=== PATIENT | male | born 1960 | race Caucasian/White ===

== ENCOUNTER 2022-01-15 07:36 | Emergency (ER) | payer OTHER, SELFPAY ==
[2022-01-15] VITALS (70 sets, daily range): BP systolic 141–183; BP diastolic 75–95; PULSE 73–118; RESP 12–31; TEMP 35.6; O2SAT 92–98
--- NOTE | 2022-01-15 07:40 | XRR_ITS ---
PROCEDURE INFORMATION: Exam: XR Chest Exam date and time: 01/15/2022 8:55 AM Age: 61 years old Clinical indication: Cough and dyspnea; Additional info: Dyspnea/cough TECHNIQUE: Imaging protocol: Radiologic exam of the chest. Views: 1 view. COMPARISON: No relevant prior studies available. FINDINGS: Lungs: Streaky bibasilar atelectasis noted. Pneumonia should be excluded clinically. Pleural spaces: Unremarkable. No pleural effusion. No pneumothorax. Heart/Mediastinum: Unremarkable. No cardiomegaly. Bones/joints: Unremarkable. XR/XR chest 1V portable [id number] IMPRESSION: Streaky bibasilar atelectasis. Pneumonia should be excluded clinically.
--- NOTE | 2022-01-15 07:51 | ECG_ITS ---
[facility] Test Date: 2022-01-15 Pat Name: Ishan Melo Department: Room: Gender: Male Sharepoint Net Developer: : 1960 Requested By: Kevin Keyes Order Number: [id number] Mehrdad MD: Tylor Gonzalez M.D. Measurements Intervals [place] Rate: 80 P: 67 MN: 156 QRS: 67 QRSD: 91 T: 71 QT: 362 QTc: 418 Interpretive Statements SINUS RHYTHM No previous ECG available for comparison Electronically Signed On 01-15-2022 20:35:23 PAYMENT POSTER by Tylor Gonzalez M.D. [id number] f
--- NOTE | 2022-01-15 07:59 | PC.NURSE ---
pt reports vertigo for the past two days, today was worse. reports vomiting, epigastric pain, and sweating today. denies dyspnea or chest pain, denies fevers or complaints. pt sitting in bed, visitor at bedside. respirations even and unlabored, lung sounds clear bilat. bowel sounds present.
[2022-01-15 08:11] LABS: Basophils # 0.1 10^3/uL (0.0-0.1); Basophils % 1.1 %; Eosinophils # 0.1 10^3/uL (0.0-0.8); Eosinophils % 0.8 %; Hematocrit 43.5 % (42.0-52.0); Hemoglobin 14.3 g/dL (11.7-16.6); Lymphocytes # 1.5 10^3/uL (0.8-4.8); Lymphocytes % 13.3 %; Mean Corpuscular HGB Conc 32.9 g/dL (30.0-36.0); Mean Corpuscular Hemoglobin 28.9 pg (28.0-34.0); Mean Corpuscular Volume 88.1 fl (80-94); Mean Platelet Volume 9.8 fL (7.4-10.4); Monocytes # 0.5 10^3/uL (0.2-0.9); Neutrophils # 8.97 10^3/uL (1.8-7.7); Neutrophils % 78.7 %; Nucleated Red Blood Cells % 0 %; Platelet Count 291 10^3/cmm (130-400); Red Blood Count 4.94 10^6/uL (4.1-5.3); Red Cell Distribution Width 13.8 % (12.1-15.1); White Blood Count 11.4 10^3/uL (4.0-10.0)
--- NOTE | 2022-01-15 08:12 | CT_ITS ---
WS: [id number] CT HEAD NONCONTRAST HISTORY: Recent closed head injury TECHNIQUE: Contiguous axial imaging performed through the brain in 2.5 mm imaging. Bone and soft tiss ue windows. Sagittal and coronal reformats reviewed. All CT scans at [facility] use at least one of these dose optimization techniques: automated exposure control; mA and/or kV adjustment per pa tient size (includes targeted exams where dose is matched to clinical indication); or iterative recon struction. DLP: 1065.35 mGy.cm COMPARISON: None available. No acute intracranial hemorrhage, midline shift or mass effect. Mild atrophy and mild small vessel ischemic disease. No prior infarct. Ventricles: Normal size with no hydrocephalus. No inferior displacement of the cerebellar tonsils. Paranasal sinuses: Small amount of fluid in the RIGHT maxillary sinus. Mastoid air cells: Well pneumatized. Calvarium and scalp: Skull is intact with no soft tissue edema or swelling. CT/CT head wo con* [id number] IMPRESSION: 1. No acute intracranial hemorrhage or edema. 2. Mild cerebral atrophy and small vessel ischemic disease. 3. No fracture.
--- NOTE | 2022-01-15 08:33 | ED_ITS ---
HPI - Dizziness General: Chief Complaint: Dizziness Stated Complaint: M/V Labor Breathing, and sheela Time Seen by Provider: 01/15/22 07:39 Source: patient Mode of arrival: ambulatory History of Present Illness: HPI Narrative: 61-year-old male presents emergency room complaining of dizziness. He noticed that the last 2 days is worse when he first gets up after he he has been up for a while it seems to improve. He does notice it worse in the morning. It did intensify to today and to the point that he vomited. He is a diabetic and is hypertensive he has not been taking all of his medicine he stopped to hypertensives and stopped his metformin because of side effects. He has not really had any chest pain no fever sweats or chills no dysuria urgency or frequency. About 2 weeks ago he fell while leaving a restaurant and hit his head he had no loss of consciousness no problems of the dizziness until the last 2 days. He is not on any anticoagulants. No previous history of coronary artery disease or stroke he tells me he had an extensive work-up for coronary artery disease before he moved to this area and it was negative. MD elicited complaint: dizziness and lightheadedness Onset (ago): day(s) (2) Timing: awoke with symptoms Severity: moderate Description: lightheadedness and off-balance Context: change in body position Exacerbating factors: nothing and change in body position Associated symptoms: Reports nausea and vomiting; Denies change in hearing, chest pain, chills, cough, diaphoresis, ear discharge, ear pressure, fevers/chills, headache(s), malaise, nasal congestion, palpitations, rash, short of breath, syncope, tinnitus or weakness Associated neuro symptoms: Deny confusion, difficulty speaking, dysphagia, diplopia, extremity weakness, facial numbness, facial weakness, gait changes, numbness in extremities or visual changes Review of Systems Const: Denies: fever(s), chills, fatigue, malaise or diaphoresis ENMT: Denies: throat pain, ear discharge, change in hearing, tinnitus or nasal congestion Card: Denies: chest pain, palpitations or syncope Resp: Denies: dyspnea, productive cough or non-productive cough GI: Reports: abdominal pain, nausea and vomiting; Denies: hematemesis, dysphagia or hematochezia : Denies: flank pain, dysuria, urinary frequency or urinary urgency Musc: Denies: neck pain or back pain Skin/Breast: Denies: rash or pruritus Neuro: Denies: headache(s), numbness in extremities or confusion PFSH ED PFSH: Medical History (Updated 01/15/22 @ 12:21 by Kevin Hurley DO) Hypertension Type 2 diabetes mellitus Social History (Updated 01/15/22 @ 08:42 by Kevin Hurley DO) Smoking and tobacco status: never smoked Alcohol intake: never Physical Exam Const: GENERAL APPEARANCE: cooperative and comfortable ORIENTATION/CONSCIOUSNESS: Yes awake, Yes oriented to person, Yes oriented to place and Yes oriented to time HENMT: COMMON NORMALS: normocephalic, atraumatic, hearing grossly normal bilaterally, external ears normal, EAC's normal, TM's normal bilaterally and Normal nasal mucous membranes and turbinates present HEAD & SCALP: normo cephalic and atraumatic NOSE: Normal nasal mucous membranes and turbinates present EXTERNAL EAR: Yes external ears normal EXTERNAL AUDITORY CANAL: EAC's normal TYMPANIC MEMBRANE: TM's normal bilaterally Eye: COMMON NORMALS: Equal, round and reactive pupils present, EOMs intact bilaterally, conjunctivae normal and no scleral icterus CONJUNCTIVA: Yes conjunctivae normal PUPIL: Yes Equal, round and reactive pupils present Resp: COMMON NORMALS: normal respiratory effort, No retractions, No use of accessory muscles and clear to auscultation bilaterally AUSCULTATION: clear to auscultation bilaterally Cardio: COMMON NORMALS: regular rate, regular rhythm and No murmurs present (Cardio) RATE: regular rate RHYTHM: regular rhythm GI: COMMON NORMALS: Soft to palpation and No hepatosplenomegaly present AUSCULTATION: Yes normoactive bowel sounds PALPATION: Yes Soft to palpation, No Tenderness to palpation present (GI), No Guarding due to palpation present (GI) and Yes No hepatosplenomegaly present Extremity: COMMON NORMALS: normal to inspection, capillary refill normal, no clubbing, cyanosis or edema, no calf tenderness and no pedal edema Neuro: SENSORIUM/ORIENTATION: Yes oriented to person, Yes oriented to place and Yes oriented to time Skin: COMMON NORMALS: no rashes or lesions noted GENERAL SKIN EXAM: no rashes or lesions noted Course Vital Signs: Vital signs: Vital Signs Temperature 96.1 F L 01/15/22 07:45 Pulse Rate 104 H 01/15/22 12:35 Respiratory Rate 21 H 01/15/22 12:35 Blood Pressure 146/79 01/15/22 12:35 Pulse Oximetry 94 01/15/22 12:35 MDM - Dizziness Medical Decision Making Stented stay in the emergency room getting his blood sugars down. His symptoms improved?we controlled his blood sugar and his blood pressure his blood sugar went from 430 down to 280 after 30 units of regular insulin and a liter of normal saline. He was previously on metformin 1000 mg twice daily of immediate release had a lot of GI side effects and he quit that. Discussed with him that I think his symptoms are primarily caused by his blood pressure control and his blood sugar checked at the [facility] program will discharge a little over $12 for a month of the Janumet Exar, will also start the patient on Toprol-XL and lisinopril. Very concerned as patient is likely going to end up on some form of exogenous insulin discussed this with him he would like to still manage pills or some other form of blood sugar sugar control. Through case management we are able to get him a early appointment with Dr. Marr later this week. Patient vies to return to the emergency room he has any further problems. Advised him that the medications we started today the Janumet lisinopril and Toprol are initial doses and very likely will need to be adjusted going forward. Medical Records I reviewed the patient's medical records. Lab Data I reviewed the patient's lab results. 01/15/22 08:04 01/15/22 08:04 Radiology Impressions Chest X-Ray 01/15/22 07:40 IMPRESSION: Streaky bibasilar atelectasis. Pneumonia should be excluded clinically. Head CT 01/15/22 08:12 IMPRESSION: 1. No acute intracranial hemorrhage or edema. 2. Mild cerebral atrophy and small vessel ischemic disease. 3. No fracture. Laboratory Results WBC 11.4 10^3/uL (4.0-10.0) H 01/15/22 08:04 RBC 4.94 10^6/uL (4.1-5.3) 01/15/22 08:04 Hgb 14.3 g/dL (11.7-16.6) 01/15/22 08:04 Hct 43.5 % (42.0-52.0) 01/15/22 08:04 MCV 88.1 fl (80-94) 01/15/22 08:04 MCH 28.9 pg (28.0-34.0) 01/15/22 08:04 MCHC 32.9 g/dL (30.0-36.0) 01/15/22 08:04 RDW 13.8 % (12.1-15.1) 01/15/22 08:04 Plt Count 291 10^3/cmm (130-400) 01/15/22 08:04 MPV 9.8 fL (7.4-10.4) 01/15/22 08:04 Neut % (Auto) 78.7 % 01/15/22 08:04 Lymph % (Auto) 13.3 % 01/15/22 08:04 [place] % (Auto) 4.0 % 01/15/22 08:04 Eos % (Auto) 0.8 % 01/15/22 08:04 Baso % (Auto) 1.1 % 01/15/22 08:04 Neut # (Auto) 8.97 10^3/uL (1.8-7.7) H 01/15/22 08:04 Lymph # (Auto) 1.5 10^3/uL (0.8-4.8) 01/15/22 08:04 [place] # (Auto) 0.5 10^3/uL (0.2-0.9) 01/15/22 08:04 Eos # (Auto) 0.1 10^3/uL (0.0-0.8) 01/15/22 08:04 Baso # (Auto) 0.1 10^3/uL (0.0-0.1) 01/15/22 08:04 Nucleated RBC % (auto) 0 % 01/15/22 08:04 Nucleated RBCs # 0.0 /100WBC 01/15/22 08:04 Sodium 132 mmol/L (136-145) L 01/15/22 08:04 Potassium 4.1 mmol/L (3.5-5.1) 01/15/22 08:04 Chloride 98 mmol/L (98-107) 01/15/22 08:04 Carbon Dioxide 21 mmol/L (22-29) L 01/15/22 08:04 Anion Gap 17.1 (5-19) 01/15/22 08:04 BUN 16 mg/dL (8-23) 01/15/22 08:04 Creatinine 0.8 mg/dL (0.7-1.2) 01/15/22 08:04 GFR Calculation 98.0 mL/min (90-130) 01/15/22 08:04 Glucose 464 mg/dL (65-115) H 01/15/22 08:04 POC Glucose 288 mg/dL (70-110) H 01/15/22 12:57 Calculated Osmolality 295 mOsm/kg (285-295) 01/15/22 08:04 Calcium 9.2 mg/dL (8.5-10.5) 01/15/22 08:04 Total Bilirubin 0.2 mg/dL (0.15-1.2) 01/15/22 08:04 AST 10 U/L (0-40) 01/15/22 08:04 ALT 18 U/L (0-41) 01/15/22 08:04 Alkaline Phosphatase 102 U/L (40-130) 01/15/22 08:04 Troponin T Baseline 8 ng/L (0-15) 01/15/22 08:04 Troponin T 120 Minute 9.24 ng/L (0-15) 01/15/22 10:06 Delta Troponin T 1.24 ABS# (0-10) 01/15/22 10:06 NT-Pro-B Natriuret Pep 16 pg/mL (0-125) 01/15/22 08:04 Total Protein 7.6 g/dL (6.6-8.7) 01/15/22 08:04 Albumin 3.8 g/dL (3.5-5.2) 01/15/22 08:04 Globulin 3.8 g/dL (1.3-4.6) 01/15/22 08:04 Serum Ketones Negative (Negative) 01/15/22 08:04 Influenza Type A Ag negative (Negative) 01/15/22 08:16 Influenza Type B Ag negative (Negative) 01/15/22 08:16 Discharge Plan Discharge Patient Disposition: Home Clinical Impression: Hypertension, Type 2 diabetes mellitus Condition: Stable Prescriptions: New Toprol XL 25 mg tablet extended release 24 hr 25 mg PO DAILY Qty: 30 0RF lisinopril 10 mg tablet 10 mg PO BID Qty: 60 0RF Janumet XR 50-1,000 mg tablet, ER multiphase 24 hr 1 tab PO DAILY Qty: 30 0RF No Action Vitamin C 1,000 mg Tablet 2,000 mg PO BID zinc acetate 50 mg (zinc) Capsule 50 mg PO DAILY ibuprofen 200 mg Tablet 800 mg PO Q8H PRN (Reason: Pain) [place] 1 tsp PO PRN Discharge Orders: Discharge ED (Routine); Ordered 01/15/22 Ordered By: Kevin Hurley Discharge Diet: Diabetic Discharge Activity: Increase activity as tolerated Patient Instructions: Meal Planning with Diabetes Exchanges (DC), Opioid Safety, Pain Management Activity Restrictions/Additional Instructions: Follow-up with Dr. Marr as scheduled in his office on 01/18/2022. Coding Level of Care Code ED Franchise Sales Manager for Rebeca Fwd Exam Comprehensive
[2022-01-15 08:39] LABS: Ketone (Acetest) Serum Negative (Negative)
[2022-01-15 08:41] LABS: Influenza A by IFA negative (Negative); Influenza B by IFA negative (Negative)
[2022-01-15 08:43] LABS: Troponin(5th) Baseline 8 ng/L (0-15)
[2022-01-15 08:51] LABS: Alanine Aminotransferase 18 U/L (0-41); Albumin Level 3.8 g/dL (3.5-5.2); Alkaline Phosphatase 102 U/L (40-130); Anion Gap 17.1 (5-19); Aspartate Amino Transferase 10 U/L (0-40); Blood Urea Nitrogen 16 mg/dL (8-23); Calcium 9.2 mg/dL (8.5-10.5); Carbon Dioxide 21 mmol/L (22-29); Chloride 98 mmol/L (98-107); Globulin 3.8 g/dL (1.3-4.6); Glucose 464 mg/dL (65-115); NT Pro B Type Natriuretic Pept 16 pg/mL (0-125); Osmolality Calculated 295 mOsm/kg (285-295); Potassium 4.1 mmol/L (3.5-5.1); Sodium 132 mmol/L (136-145); Total Bilirubin 0.2 mg/dL (0.15-1.2); Total Protein 7.6 g/dL (6.6-8.7)
[2022-01-15] MEDS: amlodipine 5 mg Tablet PO (08:53)
[2022-01-15] MEDS: metoprolol tartrate 1 mg/1 mL SDV 5 mL 2.5 MG IVP (08:56)
[2022-01-15] MEDS: meclizine 25 mg tablet PO (09:05)
[2022-01-15] MEDS: sodium chloride 0.9% 1,000 ML 999 ML IV (09:24)
[2022-01-15] MEDS: insulin regular-human 100 units/1 mL 10 UNIT IVP ×3 (09:25→11:49)
--- NOTE | 2022-01-15 09:35 | ECG_ITS ---
[facility] Test Date: 2022-01-15 Pat Name: Ishan Melo Department: Room: Gender: Male Penciller: : 1960 Requested By: Kevin Keyes Order Number: [id number] Mehrdad MD: Tylor Gonzalez M.D. Measurements Intervals [place] Rate: 79 P: 72 ID: [id number] QRS: 69 QRSD: 94 T: 70 QT: 370 QTc: 426 Interpretive Statements SINUS RHYTHM No previous ECG available for comparison Electronically Signed On 01-15-2022 20:45:07 RESEARCH PROFESSIONAL by Tylor Gonzalez M.D. [id number]
[2022-01-15] MEDS: hyDRALAzine 20 mg/mL INJ 1 mL IVP (10:08)
[2022-01-15 10:14] LABS: Glucose Point of Care 373 mg/dL (70-110)
[2022-01-15 10:30] LABS: Troponin 5 2HR 9.24 ng/L (0-15)
[2022-01-15 10:36] LABS: Troponin 5 2HR Delta 1.24 ABS# (0-10)
--- NOTE | 2022-01-15 11:06 | PC.PHAR ---
pt states he hasnt been taking his rx medications for 2 months-pt states was taking lisinopril/hctz 20-25mg daily-glipizide 5mg bid-metformin 1000mg bid-actos 45mg daily-zetia 10mg daily-androgel 1.62% pump prn -cialis 20mg prn and fluocinonide 0.5% deborah prn-
[2022-01-15 11:29] LABS: Glucose Point of Care 307 mg/dL (70-110)
[2022-01-15 12:23] LABS: Glucose Point of Care 303 mg/dL (70-110)
--- NOTE | 2022-01-15 12:29 | DCPLANNER ---
Addendum entered by Angie Murguia 02/14/22 10:11: Patient had a follow up appointment scheduled to establish care with Dr. Giraldo - patient did attend appointment. Original Note: executive sales manager was asked to speak with patient about getting established with a primary care physician. Patient stated that he would like for cyanide case hardener to get patient established with a provider. executive sales manager called [facility], spoke with Claudia, gave clinic patients information. A follow up appointment was scheduled for Tuesday, January 18, 2022 at 10:[address] Giraldo. executive sales manager informed patient and ER physician of the scheduled appointment.
[2022-01-15 13:01] LABS: Glucose Point of Care 288 mg/dL (70-110)
== END 2022-01-15 13:44 | disposition home or self-care (01) ==
PROVIDERS: Emergency Provider Family Medicine
DX: I10 Essential (primary) hypertension (principal); E11.9 Type 2 diabetes mellitus without complications
CPT/HCPCS: 36416; 70450; 71045; 80053; 82009; 82962; 83880; 84484; 85025; 87804; 93005; 96361; 96374; 96375; 96376; 99285; J0360; J1815; J3490; J7030; J8597

== ENCOUNTER → 2022-01-18 11:06 | Outpatient (BNVA) | payer OTHER, SELFPAY | PROVIDERS: Visit Provider Family Medicine | DX: E78.00 Pure hypercholesterolemia, unspecified (principal); E11.9 Type 2 diabetes mellitus without complications; I10 Essential (primary) hypertension | CPT/HCPCS: 80053; 80061; 83036 ==

== ENCOUNTER → 2022-05-16 08:20 | Outpatient (BNVA) | payer OTHER, SELFPAY | PROVIDERS: PCP Family Medicine; Visit Provider Family Medicine | DX: R79.89 Other specified abnormal findings of blood chemistry (principal); E78.00 Pure hypercholesterolemia, unspecified; E11.9 Type 2 diabetes mellitus without complications | CPT/HCPCS: 80053; 80061; 83036; 84403 ==

== ENCOUNTER 2022-09-23 14:00 | Outpatient (CLI) | payer OTHER, SELFPAY | END 2022-09-23 14:01 | disposition home or self-care (01) | LOC: SLEEP 09-24 13:07 | PROVIDERS: PCP Family Medicine; Visit Provider Family Medicine | DX: G47.33 Obstructive sleep apnea (adult) (pediatric) (principal); Z99.89 Dependence on other enabling machines and devices | CPT/HCPCS: G0399 ==

== ENCOUNTER 2023-07-14 10:39 | Emergency (ER) | payer OTHER, SELFPAY ==
[2023-07-14 10:44] VITALS: BP 150/81; PULSE 99; RESP 16; TEMP 36.4; O2SAT 96
[2023-07-14 13:13] LABS: Basophils # 0.1 10^3/uL (0.0-0.1); Eosinophils # 0.2 10^3/uL (0.0-0.8); Eosinophils % 1.7 %; Hematocrit 48.7 % (37-53); Lymphocytes # 2.2 10^3/uL (0.8-4.8); Lymphocytes % 24.3 %; Mean Corpuscular HGB Conc 32.9 g/dL (30-55); Mean Corpuscular Hemoglobin 29.4 pg (27-33); Mean Corpuscular Volume 89.4 fl (82-101); Mean Platelet Volume 9.4 fL (7.4-10.4); Monocytes # 0.6 10^3/uL (0.2-0.9); Monocytes % 7.1 %; Neutrophils # 5.82 10^3/uL (1.8-7.7); Neutrophils % 64.1 %; Nucleated Red Blood Cells % 0 %; Platelet Count 235 10^3/cmm (157-399); Red Blood Count 5.45 10^6/uL (3.85-5.65); Red Cell Distribution Width 14.2 % (12.1-15.1); White Blood Count 9.06 10^3/uL (3.29-11.43)
[2023-07-14 13:18] VITALS: BP 146/87; PULSE 98; RESP 17; O2SAT 96
--- NOTE | 2023-07-14 13:29 | CT_ITS ---
WS: [id number] CT ABDOMEN AND PELVIS NONCONTRAST HISTORY: hematuria x4 days TECHNIQUE: Imaging performed through the abdomen and pelvis. Coronal and sagittal reformats are submi tted. All CT scans at [facility] use at least one of these dose optimization techniques: auto mated exposure control; mA and/or kV adjustment per patient size (includes targeted exams where dose is matched to clinical indication); or iterative reconstruction. DLP: 985.83 mGy.cm COMPARISON: None available. Lower thorax: Mild dependent changes. No pneumonia. Heart size is normal. Liver: Normal size liver. No mass or bile duct dilatation. Gallbladder: Normal gallbladder. No pericholecystic fluid or cholelithiasis. No gallbladder wall thic kening. Pancreas: Normal size and attenuation. Normal pancreatic duct. No pancreatitis or mass. Spleen: Normal. Adrenal glands: Fat-containing 2.3 x 2.4 cm mass associated with the RIGHT adrenal gland. Normal LEFT adrenal gland. Right kidney: Abnormal shape and configuration of the RIGHT kidney. There are no prior studies but th ere are lobulated masses associated with the RIGHT kidney. The largest measures 6.2 x 5.6 cm is proba brando a cyst. These cannot be further evaluated accurately on this noncontrast study. There is a large central calcification in the renal pelvis measuring 3.3 x 1.6 cm. Inflammatory changes within the roxanna al pelvis and proximal ureter. Distal ureter is normal size. Mild dilatation of the central RIGHT roxanna al pelvis. Left kidney: Abnormal configuration of the LEFT kidney. Exophytic low-attenuation masses cannot be fu rther characterized. There is no hydronephrosis. There are a few nonobstructing calcifications. Aorta: Mild atherosclerosis abdominal aorta with no aneurysm. There is a small amount of free fluid extending along the RIGHT paracolic gutter and RIGHT abdomen. S mall amount of fluid over the RIGHT psoas muscle. GI tract: Marked fluid distention of the stomach. No small bowel obstruction. There is extensive sign ificant diverticular disease throughout the entire colon. No obstructive pattern. Normal appendix. Abdominal wall: Negative. No hernia. Pelvis: Prostate gland enlargement with mild encroachment upon the bladder. No free fluid. Osseous structures: Increase in the lumbar lordosis. CT/CT kidney stone [id number] IMPRESSION: 1. Acute inflammatory process associated with the RIGHT kidney. There is a lar ge central renal calcification with adjacent soft tissue infiltration consisten t with an infection and partial renal obstruction. Majority of the changes are related to an inflammatory process. 2. Fluid along the RIGHT paracolic gutter over the RIGHT psoas muscle. Probabl y an inflammatory reaction related to the renal process. 3. Severe diffuse diverticulosis. No evidence for acute diverticulitis. 4. Abnormal configuration of each kidney. There are lobulated masses which may be renal cysts. These cannot be further evaluated on this noncontrast evaluati on.
[2023-07-14 13:30] VITALS: BP 130/78
[2023-07-14 13:32] LABS: Anion Gap 17.3 (5-19); Blood Urea Nitrogen 16 mg/dL (8-23); Calcium 9.3 mg/dL (8.5-10.5); Carbon Dioxide 22 mmol/L (22-29); Chloride 101 mmol/L (98-107); Creatinine Clr Calc Pharmacy 124.6239; Glomerular Filtration Rate 113.9 mL/min (90-130); Glucose 181 mg/dL (65-115); Osmolality Calculated 288 mOsm/kg (285-295); Potassium 4.3 mmol/L (3.5-5.1); Sodium 136 mmol/L (136-145)
--- NOTE | 2023-07-14 13:43 | ED_ITS ---
Documented by User: ALEJA Marc 07/14/23 15:37 HPI - Male Genitourinary 2 General: Chief complaint: Urogenital-Male Stated complaint: blood in urine Time Seen by Provider: 07/14/23 12:59 Source: patient Mode of arrival: ambulatory Limitations: no limitations History of Present Illness: Patient is a 62-year-old male presenting to the emergency department as instructed by [facility] due to hematuria for the past 4 days. Patient notes that the blood in his urine has been constant, though has not been associated with any dysuria, flank pain, nausea, vomiting, or other concerning symptoms. He does note that he has never had this before, though has a history of 2 prior kidney stones that did not require medical attention. He is not having any fevers at this time. Medical history positive for diabetes and hypertension. The urinalysis obtained at the [facility] was reportedly too bloody to run any tests on, reason for being sent to the ED. Currently, patient has no complaints. No penile trauma reported. MD Complaint: other (Hematuria) Onset (ago): day(s) Duration: constant Associated symptoms: Reports no associated symptoms and hematuria; Deny dysuria, nausea or vomiting Review of Systems 2 General: Reports: 10 or more systems reviewed and unremarkable except in HPI and below Const: Denies: fever(s), chills, change in appetite, change in weight or diaphoresis ENMT: Denies: throat pain or hoarseness Card: Denies: chest pain, palpitations or lightheadedness Resp: Denies: dyspnea, productive cough or wheezing GI: Denies: abdominal pain, nausea, vomiting, diarrhea, constipation, bloating, change in stool character or hematochezia : Reports: hematuria; Denies: flank pain, difficulty urinating, dysuria, urinary frequency or urinary urgency Musc: Denies: neck pain or back pain Skin/Breast: Denies: rash or new lesions Neuro: Denies: headache(s) or dizziness PFSH ED 2 PFSH: Medical History Low testosterone Erectile dysfunction Hypercholesteremia Tachycardia Obstructive sleep apnea on CPAP Type 2 diabetes mellitus Hypertension Surgical History History of hernia surgery 2018 Family History Other Adopted Social History Smoking and tobacco/nicotine status: never used tobacco/nicotine Alcohol intake: current Alcohol intake frequency: holidays/special occasions only Substance/Drug Use: never Adopted: Yes Lives independently: Yes Household members: spouse Marital status: Number of children: 4 Current occupational status: retired Current gender identity: Male Physical Exam 2 Const: COMMON NORMALS: no acute distress, patient oriented x3, no limitations, healthy appearing, alert and well nourished GENERAL APPEARANCE: cooperative and comfortable NUTRITIONAL APPEARANCE: obese ORIENTATION/CONSCIOUSNESS: Y es awake HENMT: COMMON NORMALS: normocephalic, atraumatic, hearing grossly normal bilaterally, external ears normal, Normal external nose present, Normal nasal mucous membranes and turbinates present and moist oral mucous membranes HEAD & SCALP: normocephalic and atraumatic NOSE: Normal external nose present and Normal nasal mucous membranes and turbinates present EXTERNAL EAR: Yes external ears normal Eye: COMMON NORMALS: Equal, round and reactive pupils present, EOMs intact bilaterally, conjunctivae normal and normal visual christian by confrontation C ONJUNCTIVA: Yes conjunctivae normal PUPIL: Yes Equal, round and reactive pupils present Neck/C-Spine: COMMON NORMALS: full ROM, supple, no meningeal signs and no JVD Resp: COMMON NORMALS: normal respiratory effort, No retractions, No use of accessory muscles and clear to auscultation bilaterally AUSCULTATION: clear to auscultation bilaterally, no crackles, no rales, no rhonchi and no wheezes Cardio: COMMON NORMALS: no JVD, regular rate, regular rhythm, S1 normal heart sound present, S2 normal heart sound present, No gallops present (Cardio), No clicks present (Cardio), No murmurs present (Cardio), No rub (Cardio) and Peripheral pulses 2+ throughout RATE: regular rate RHYTHM: regular rhythm HEART SOUNDS: S1 normal heart sound present and S2 normal heart sound present PERIPHERAL PULSES: Peripheral pulses 2+ throughout GI: COMMON NORMALS: Normal to inspection, nondistended, normoactive bowel sounds present, Soft to palpation, non-tender, No hepatosplenomegaly present and no masses INSPECTION: Yes central obesity AUSCULTATION: Yes normoactive bowel sounds PALPATION: Yes Soft to palpation, No Guarding due to palpation present (GI), No Rigid due to palpation and Yes No hepatosplenomegaly present RECTAL EXAM: Yes deferred : COMMON NORMALS: Yes no CVA tenderness BLADDER/KIDNEY EXAM: Yes no CVA tenderness Back/Pelvis: COMMON NORMALS: no CVA tenderness Extremity: COMMON NORMALS: normal to inspection and full ROM Neuro: COMMON NORMALS: patient oriented x3, moves all extremities, no focal motor deficits and no sensory deficits noted SENSORIUM/ORIENTATION: Yes alert MENINGEAL SIGNS: Yes no meningeal signs Psych: COMMON NORMALS: mental status grossly normal, cooperative and speech normal SPEECH: Yes normal speech Skin: COMMON NORMALS: no rashes or lesions noted GENERAL SKIN EXAM: no rashes or lesions noted Course 2 Vital Signs: Vital signs: Vital Signs Temperature 97.6 F 07/14/23 10:44 Pulse Rate 92 07/14/23 15:38 Respiratory Rate 16 07/14/23 14:00 Blood Pressure 142/101 07/14/23 15:38 Pulse Oximetry 95 07/14/23 15:38 Oxygen Delivery Me thod Room Air 07/14/23 14:30 [facility] - Male Medical Decision Making Patient presents for days of hematuria. No complaints noted in addition to the blood in urine, does note a history of kidney stones though did not seek evaluation. Was sent from [place] due to the amount of blood in his urine. Urinalysis did reveal large amounts of blood as well as too numerous to count of red blood cells, some mild signs of infection. His blood work was unremarkable. Abdomen pelvis CT showed an acute inflammatory process in the right kidney with large central renal calcification. There was some associated inflammatory changes noted as well. I spoke with urologist at [facility], Dr. Tesfaye, who states patient can be treated outpatient and follow-up in his office with any further concerns. He will be started on ciprofloxacin for treatment of any infection and given Naprosyn to help with pain. He does note that he has not had any pain since noticing the blood. Reasons to return are thoroughly discussed, and patient will follow-up with the [place]. All other questions and concerns addressed at this time. Lab Data I reviewed the patient's lab results. 07/14/23 12:42 07/14/23 12:42 Radiology Impressions Abdomen/Pelvis CT 07/14/23 13:29 IMPRESSION: 1. Acute inflammatory process associated with the RIGHT kidney. There is a large central renal calcification with adjacent soft tissue infiltration consistent with an infection and partial renal obstruction. Majority of the changes are related to an inflammatory process. 2. Fluid along the RIGHT paracolic gutter over the RIGHT psoas muscle. Probably an inflammatory reaction related to the renal process. 3. Severe diffuse diverticulosis. No evidence for acute diverticulitis. 4. Abnormal configuration of each kidney. There are lobulated masses which may be renal cysts. These cannot be further evaluated on this noncontrast evaluation. Laboratory Results WBC 9.06 10^3/uL (3.29-11.43) 07/14/23 12:42 RBC 5.45 10^6/uL (3.85-5.65) 07/14/23 12:42 Hgb 16.00 g/dL (11.27-16.99) 07/14/23 12:42 Hct 48.7 % (37-53) 07/14/23 12:42 MCV 89.4 fl (82-101) 07/14/23 12:42 MCH 29.4 pg (27-33) 07/14/23 12:42 MCHC 32.9 g/dL (30-55) 07/14/23 12:42 RDW 14.2 % (12.1-15.1) 07/14/23 12:42 Plt Count 235 10^3/cmm (157-399) 07/14/23 12:42 MPV 9.4 fL (7.4-10.4) 07/14/23 12:42 Neut % (Auto) 64.1 % 07/14/23 12:42 Lymph % (Auto) 24.3 % 07/14/23 12:42 [place] % (Auto) 7.1 % 07/14/23 12:42 Eos % (Auto) 1.7 % 07/14/23 12:42 Baso % (Auto) 1.0 % 07/14/23 12:42 Neut # (Auto) 5.82 10^3/uL (1.8-7.7) 07/14/23 12:42 Lymph # (Auto) 2.2 10^3/uL (0.8-4.8) 07/14/23 12:42 [place] # (Auto) 0.6 10^3/uL (0.2-0.9) 07/14/23 12:42 Eos # (Auto) 0.2 10^3/uL (0.0-0.8) 07/14/23 12:42 Baso # (Auto) 0.1 10^3/uL (0.0-0.1) 07/14/23 12:42 Nucleated RBC % (auto) 0 % 07/14/23 12:42 Nucleated RBCs # 0.0 /100WBC 07/14/23 12:42 Sodium 136 mmol/L (136-145) 07/14/23 12:42 Potassium 4.3 mmol/L (3.5-5.1) 07/14/23 12:42 Chloride 101 mmol/L (98-107) 07/14/23 12:42 Carbon Dioxide 22 mmol/L (22-29) 07/14/23 12:42 Anion Gap 17.3 (5-19) 07/14/23 12:42 BUN 16 mg/dL (8-23) 07/14/23 12:42 Creatinine 0.7 mg/dL (0.7-1.2) 07/14/23 12:42 GFR Calculation 113.9 mL/min (90-130) 07/14/23 12:42 Glucose 181 mg/dL (65-115) H 07/14/23 12:42 Calculated Osmolality 288 mOsm/kg (285-295) 07/14/23 12:42 Calcium 9.3 mg/dL (8.5-10.5) 07/14/23 12:42 Urine Color Red (Yellow) A 07/14/23 13:14 Urine Appearance Bloody (CLEAR) A 07/14/23 13:14 Urine pH 5 (5-7) 07/14/23 13:14 Ur Specific [place] 1.020 (1.005-1.030) 07/14/23 13:14 Urine Protein 3+ (Negative) H 07/14/23 13:14 Urine Glucose (UA) 4+ (Normal) H 07/14/23 13:14 Urine Ketones Negative (Negative) 07/14/23 13:14 Urine Blood 3+ (Negative) H 07/14/23 13:14 Urine Nitrate Negative (Negative) 07/14/23 13:14 Urine Bilirubin Neg (Negative) 07/14/23 13:14 Urine Urobilinogen Neg mg/dL (Negative) 07/14/23 13:14 Ur Leukocyte Esterase Trace (Negative) H 07/14/23 13:14 Urine RBC Too numerous to cnt /hpf (0-2) H 07/14/23 13:14 Urine WBC 80-100 /hpf (0-5) H 07/14/23 13:14 Ur Squamous Epith Cells 0-4 /hpf (0-5) H 07/14/23 13:14 Amorphous Sediment Not Reportable 07/14/23 13:14 Urine Bacteria 1+ /hpf (NONE) H 07/14/23 13:14 Urine Mucus Trace /hpf 07/14/23 13:14 All radiology interpretation(s) finalized by discharge Discharge Plan Discharge Patient Disposition: Home Clinical Impression: Renal calculus Hematuria Qualifiers: Hematuria type: gross Qualified Code(s): R31.0 - Gross hematuria Condition: Stable Prescriptions: New Cipro 500 mg tablet 500 mg PO BID 10 Days Qty: 20 0RF Naprosyn 500 mg tablet 500 mg PO BID PRN (Reason: pain) Qty: 30 0RF No Action (DME) CPAP 16 setting See Rx Instructions .ROUTE .MEDSUPPLY Qty: 1 0RF Rx Instructions: As directed (DME) CPAP mask, tubing, supplies See Rx Instructions .ROUTE .MEDSUPPLY Qty: 1 1RF Rx Instructions: As directed (DME) lancets 33 gauge misc See Rx Instructions .Route Qty: 100 3RF Rx Instructions: As directed ketoconazole 2 % shampoo 1 applic topical Q14D Qty: 120 2RF (DME) OneTouch Verio test strips Strip See Rx Instructions .Route Qty: 100 4RF Rx Instructions: As directed ezetimibe 10 mg tablet 10 mg PO DAILY Qty: 60 0RF Rx Instructions: 340b ascorbic acid (vitamin C) [Vitamin C] 1,000 mg Tablet 2,000 mg PO BID zinc acetate 50 mg (zinc) Capsule 50 mg PO DAILY metoprolol succinate 50 mg Tablet Extended Release 24 Hr 25 mg PO DAILY lisinopril 20 mg Tablet 10 mg PO DAILY sildenafil 100 mg Tablet See Rx Instructions .ROUTE .COMPLEX Rx Instructions: Take 50mg by mouth 1 hour prior to sexual activity. Limit 6 does per 30 days. metformin 500 mg Tablet Extended Release 24 Hr 1,000 mg PO DAILY Jardiance 25 mg Tablet 25 mg PO DAILY fluocinonide 0.05 % cream 1 applic topical BID alogliptin 12.5 mg Tablet 12.5 mg PO DAILY Discharge Orders: Discharge ED (Routine); Ordered 07/14/23 Ordered By: Car Perez Referrals: Glenn Thompson DO [Primary Care Provider] - Discharge Diet: As Directed Discharge Activity: Increase activity as tolerated Patient Instructions: Kidney Stones (ED) Activity Restrictions/Additional Instructions: Take antibiotics as prescribed. Pain medications as directed. Follow-up with urology as discussed, [facility] Return if you develop any new or worsening of symptoms. Coding Level of Care Code ED Screw Machine Operator Swiss Type for Chg Fwd Documented by User: Kevin Hurley DO 07/14/23 18:06 HPI - Male Genitourinary 2 General: Chief complaint: Urogenital-Male Stated complaint: blood in urine Time Seen by Provider: 07/14/23 12:59 PFSH ED 2 PFSH: Medical History Low testosterone Erectile dysfunction Hypercholesteremia Tachycardia Obstructive sleep apnea on CPAP Type 2 diabetes mellitus Hypertension Surgical History History of hernia surgery 2018 Family History Other Adopted Social History Smoking and tobacco/nicotine status: never used tobacco/nicotine Alcohol intake: current Alcohol intake frequency: holidays/special occasions only Substance/Drug Use: never Adopted: Yes Lives independently: Yes Household members: spouse Marital status: Number of children: 4 Current occupational status: retired Current gender identity: Male Course 2 Vital Signs: Vital signs: Vital Signs Temperature 97.6 F 07/14/23 10:44 Pulse Rate 92 07/14/23 15:38 Respiratory Rate 16 07/14/23 14:00 Blood Pressure 142/101 07/14/23 15:38 Pulse Oximetry 95 07/14/23 15:38 Oxygen Delivery Me thod Room Air 07/14/23 14:30 MDM - Male Medical Decision Making Patient presents for days of hematuria. No complaints noted in addition to the blood in urine, does note a history of kidney stones though did not seek evaluation. Was sent [place] due to the amount of blood in his urine. Urinalysis did reveal large amounts of blood as well as too numerous to count of red blood cells, some mild signs of infection. His blood work was unremarkable. Abdomen pelvis CT showed an acute inflammatory process in the right kidney with large central renal calcification. There was some associated inflammatory changes noted as well. I spoke with urologist at [facility], Dr. Tesfaye, who states patient can be treated outpatient and follow-up in his office with any further concerns. He will be started on ciprofloxacin for treatment of any infection and given Naprosyn to help with pain. He does note that he has not had any pain since noticing the blood. Reasons to return are thoroughly discussed, and patient will follow-up with the [place]. All other questions and concerns addressed at this time. Chart reviewed Lab Data 07/14/23 12:42 07/14/23 12:42 Radiology Impressions Abdomen/Pelvis CT 07/14/23 13:29 IMPRESSION: 1. Acute inflammatory process associated with the RIGHT kidney. There is a large central renal calcification with adjacent soft tissue infiltration consistent with an infection and partial renal obstruction. Majority of the changes are related to an inflammatory process. 2. Fluid along the RIGHT paracolic gutter over the RIGHT psoas muscle. Probably an inflammatory reaction related to the renal process. 3. Severe diffuse diverticulosis. No evidence for acute diverticulitis. 4. Abnormal configuration of each kidney. There are lobulated masses which may be renal cysts. These cannot be further evaluated on this noncontrast evaluation. Laboratory Results WBC 9.06 10^3/uL (3.29-11.43) 07/14/23 12:42 RBC 5.45 10^6/uL (3.85-5.65) 07/14/23 12:42 Hgb 16.00 g/dL (11.27-16.99) 07/14/23 12:42 Hct 48.7 % (37-53) 07/14/23 12:42 MCV 89.4 fl (82-101) 07/14/23 12:42 MCH 29.4 pg (27-33) 07/14/23 12:42 MCHC 32.9 g/dL (30-55) 07/14/23 12:42 RDW 14.2 % (12.1-15.1) 07/14/23 12:42 Plt Count 235 10^3/cmm (157-399) 07/14/23 12:42 MPV 9.4 fL (7.4-10.4) 07/14/23 12:42 Neut % (Auto) 64.1 % 07/14/23 12:42 Lymph % (Auto) 24.3 % 07/14/23 12:42 [place] % (Auto) 7.1 % 07/14/23 12:42 Eos % (Auto) 1.7 % 07/14/23 12:42 Baso % (Auto) 1.0 % 07/14/23 12:42 Neut # (Auto) 5.82 10^3/uL (1.8-7.7) 07/14/23 12:42 Lymph # (Auto) 2.2 10^3/uL (0.8-4.8) 07/14/23 12:42 [place] # (Auto) 0.6 10^3/uL (0.2-0.9) 07/14/23 12:42 Eos # (Auto) 0.2 10^3/uL (0.0-0.8) 07/14/23 12:42 Baso # (Auto) 0.1 10^3/uL (0.0-0.1) 07/14/23 12:42 Nucleated RBC % (auto) 0 % 07/14/23 12:42 Nucleated RBCs # 0.0 /100WBC 07/14/23 12:42 Sodium 136 mmol/L (136-145) 07/14/23 12:42 Potassium 4.3 mmol/L (3.5-5.1) 07/14/23 12:42 Chloride 101 mmol/L (98-107) 07/14/23 12:42 Carbon Dioxide 22 mmol/L (22-29) 07/14/23 12:42 Anion Gap 17.3 (5-19) 07/14/23 12:42 BUN 16 mg/dL (8-23) 07/14/23 12:42 Creatinine 0.7 mg/dL (0.7-1.2) 07/14/23 12:42 GFR Calculation 113.9 mL/min (90-130) 07/14/23 12:42 Glucose 181 mg/dL (65-115) H 07/14/23 12:42 Calculated Osmolality 288 mOsm/kg (285-295) 07/14/23 12:42 Calcium 9.3 mg/dL (8.5-10.5) 07/14/23 12:42 Urine Color Red (Yellow) A 07/14/23 13:14 Urine Appearance Bloody (CLEAR) A 07/14/23 13:14 Urine pH 5 (5-7) 07/14/23 13:14 Ur Specific [place] 1.020 (1.005-1.030) 07/14/23 13:14 Urine Protein 3+ (Negative) H 07/14/23 13:14 Urine Glucose (UA) 4+ (Normal) H 07/14/23 13:14 Urine Ketones Negative (Negative) 07/14/23 13:14 Urine Blood 3+ (Negative) H 07/14/23 13:14 Urine Nitrate Negative (Negative) 07/14/23 13:14 Urine Bilirubin Neg (Negative) 07/14/23 13:14 Urine Urobilinogen Neg mg/dL (Negative) 07/14/23 13:14 Ur Leukocyte Esterase Trace (Negative) H 07/14/23 13:14 Urine RBC Too numerous to cnt /hpf (0-2) H 07/14/23 13:14 Urine WBC 80-100 /hpf (0-5) H 07/14/23 13:14 Ur Squamous Epith Cells 0-4 /hpf (0-5) H 07/14/23 13:14 Amorphous Sediment Not Reportable 07/14/23 13:14 Urine Bacteria 1+ /hpf (NONE) H 07/14/23 13:14 Urine Mucus Trace /hpf 07/14/23 13:14 Discharge Plan Discharge Patient Disposition: Home Clinical Impression: Renal calculus Hematuria Qualifiers: Hematuria type: gross Qualified Code(s): R31.0 - Gross hematuria Condition: Stable Prescriptions: New Cipro 500 mg tablet 500 mg PO BID 10 Days Qty: 20 0RF Naprosyn 500 mg tablet 500 mg PO BID PRN (Reason: pain) Qty: 30 0RF No Action (DME) CPAP 16 setting See Rx Instructions .ROUTE .MEDSUPPLY Qty: 1 0RF Rx Instructions: As directed (DME) CPAP mask, tubing, supplies See Rx Instructions .ROUTE .MEDSUPPLY Qty: 1 1RF Rx Instructions: As directed (DME) lancets 33 gauge misc See Rx Instructions .Route Qty: 100 3RF Rx Instructions: As directed ketoconazole 2 % shampoo 1 applic topical Q14D Qty: 120 2RF (DME) OneTouch Verio test strips Strip See Rx Instructions .Route Qty: 100 4RF Rx Instructions: As directed ezetimibe 10 mg tablet 10 mg PO DAILY Qty: 60 0RF Rx Instructions: 340b ascorbic acid (vitamin C) [Vitamin C] 1,000 mg Tablet 2,000 mg PO BID zinc acetate 50 mg (zinc) Capsule 50 mg PO DAILY metoprolol succinate 50 mg Tablet Extended Release 24 Hr 25 mg PO DAILY lisinopril 20 mg Tablet 10 mg PO DAILY sildenafil 100 mg Tablet See Rx Instructions .ROUTE .COMPLEX Rx Instructions: Take 50mg by mouth 1 hour prior to sexual activity. Limit 6 does per 30 days. metformin 500 mg Tablet Extended Release 24 Hr 1,000 mg PO DAILY Jardiance 25 mg Tablet 25 mg PO DAILY fluocinonide 0.05 % cream 1 applic topical BID alogliptin 12.5 mg Tablet 12.5 mg PO DAILY Discharge Orders: Discharge ED (Routine); Ordered 07/14/23 Ordered By: Car Perez Referrals: Glenn Thompson DO [Primary Care Provider] - Discharge Diet: As Directed Discharge Activity: Increase activity as tolerated Patient Instructions: Kidney Stones (ED) Activity Restrictions/Additional Instructions: Take antibiotics as prescribed. Pain medications as directed. Follow-up with urology as discussed, and [facility]. Return if you develop any new or worsening of symptoms. Coding Level of Care Code ED Screw Machine Operator Swiss Type for Rebeca Victor
[2023-07-14 13:54] LABS: Protein Urine 3+ (Negative); Urine Appearance Bloody (CLEAR); Urine Color Red (Yellow); pH Urine 5 (5-7)
[2023-07-14 13:55] LABS: Add Urine Culture? Yes; Bacteria Urine 1+ /hpf; Bilirubin Urine Neg (Negative); Blood Urine 3+ (Negative); Glucose Urine UA 4+ (Normal); Ketones Urine Negative (Negative); Leukocyte Esterase Urine Trace (Negative); Mucus Urine TRACE /hpf; Nitrate Urine Negative (Negative); RBC Urine TOO NUMEROUS TO CNT /hpf (0-2); Squamous Epithelial Cell Urine 0-4 /hpf (0-5); Urobilinogen Urine Neg (Negative); WBC Urine 80-100 /hpf (0-5)
[2023-07-14 14:00] VITALS: BP 142/89; PULSE 98; RESP 16; O2SAT 97
[2023-07-14 14:30] VITALS: BP 143/85; O2SAT 96
[2023-07-14 15:38] VITALS: BP 142/101; PULSE 92; O2SAT 95
== END 2023-07-14 15:39 | disposition home or self-care (01) ==
PROVIDERS: Emergency Medicine; Emergency Provider Physician Assistant; PCP Emergency Medicine Emergency Medical Services
DX: R31.0 Gross hematuria (principal); N20.0 Calculus of kidney
CPT/HCPCS: 36415; 74176; 80048; 81001; 85025; 87086; 99284